=== PATIENT | female | born 1945 | race Caucasian/White ===

== ENCOUNTER 2016-11-23 06:51 | Day surgery (SDC) | payer OTHER ==
[~2016-11-23] VITALS: Ht 167.6 cm; Wt 112.0 kg
[~2016-11-23 06:51] MED LIST: ALLO300T2 PO; ATEN-104 PO; BUME1TAB PO; CARI1TAB34 PO; FURO1TAB93 PO; LORTA5 PO; LOVA1TAB47 PO; POTASSIUM OTC; TAB-TAB PO; VITA100020 SL; XANA1TAB6 PO; ZANT150T2 PO
[2016-11-23 07:00] VITALS: BP 146/84; PULSE 123; RESP 20; O2SAT 96
[2016-11-23] MEDS ORDERED: NS 1000P @30 MLS/HR (KVO) IV SCH (07:30)
[2016-11-23] MEDS ORDERED: diphenhydrAMINE HCL 50 MG CAP PO SCH (07:30)
[2016-11-23 07:42] LABS: AUTOMATED NEUTROPHIL # 4.9 TH/MM3 (1.8-7.7); BASOPHIL % 0.6 % (0.0-2.0); EOSINOPHIL % 0.4 % (0.0-4.0); HEMATOCRIT 26.7 % (35.0-46.0); HEMO FLAGS AUTO DIFF; LYMPH % 17.1 % (9.0-44.0); LYMPHOCYTE # 1.2 TH/MM3 (1.0-4.8); MEAN CELL VOLUME 60.4 FL (80.0-100.0); MEAN CORPUSCULAR HEMOGLOBIN 18.3 PG (27.0-34.0); MEAN CORPUSCULAR HGB CONC 30.2 % (32.0-36.0); NEUT % 71.9 % (16.0-70.0); PLATELET COUNT 278 TH/MM3 (150-450); RED BLOOD COUNT 4.42 MIL/MM3 (4.00-5.30); RED CELL DISTRIBUTION WIDTH 23.7 % (11.6-17.2); WHITE BLOOD COUNT 6.8 TH/MM3 (4.0-11.0)
[2016-11-23 07:49] LABS: APTT (PATIENT) 26.1 SEC (24.3-30.1); INTERNATIONAL NORMALIZED RATIO 1.1 RATIO; PROTHROMBIN TIME - PATIENT 12.3 SEC (9.8-11.6)
[2016-11-23 07:56] LABS: BICARBONATE 27.7 MEQ/L (21.0-32.0); POTASSIUM 4.1 MEQ/L (3.5-5.1)
[2016-11-23] MEDS ORDERED: BUME2TAB PO (07:56)
[2016-11-23] MEDS ORDERED: HYDR-3133 PO (07:56)
[2016-11-23] MEDS ORDERED: OMEP40CA2 PO (07:56)
[2016-11-23] MEDS ORDERED: ENOX100I SQ (07:56)
[2016-11-23] MEDS ORDERED: MORP1TAB24 PO (07:56)
[2016-11-23] MEDS ORDERED: LANTUS2P SQ (07:56)
[2016-11-23] MEDS ORDERED: NYST1000 SWISH-SWAL (07:56)
[2016-11-23] MEDS ORDERED: ALPR1TAB3 PO (07:56)
[2016-11-23] MEDS ORDERED: ISOS30TA3 PO (07:56)
[2016-11-23] MEDS ORDERED: SPIR50TA PO (07:56)
[2016-11-23] MEDS ORDERED: TIZA4TAB PO (07:56)
[2016-11-23] MEDS ORDERED: IPRASOL INH ×2 (07:56)
[2016-11-23] MEDS ORDERED: CYMB30CA PO (07:56)
[2016-11-23] MEDS ORDERED: LOVA40TA PO (07:56)
[2016-11-23] MEDS ORDERED: CLOP75TA PO (07:56)
[2016-11-23] MEDS ORDERED: VENTAER INH (07:56)
[2016-11-23] MEDS ORDERED: POTA-163 PO (07:56)
[2016-11-23] MEDS ORDERED: COUM5TAB PO (07:56)
[2016-11-23] MEDS ORDERED: SUCR1TAB PO (07:56)
[2016-11-23] MEDS ORDERED: CARV25TA PO (07:56)
[2016-11-23] MEDS ORDERED: GABA600T PO (07:56)
[2016-11-23] MEDS ORDERED: HUMALOG SQ (07:56)
[2016-11-23] MEDS ORDERED: LINA145C PO (07:56)
[2016-11-23] MEDS ORDERED: CHOL100025 CHEW (07:56)
[2016-11-23] MEDS ORDERED: FLUTI44I INH (07:56)
[2016-11-23 08:22] LABS: CORRECTED NUCLEATED RBC 2 /100 WBC (0-0); NEUTROPHIL # MANUAL DIFF 5.3 TH/MM3 (1.8-7.7); POLYS (SEG NEUTROPHILS) 78 % (16-70); WBC DIFF SAMPLE 100
[2016-11-23 08:23] LABS: PLATELET ESTIMATE SMEAR NORMAL (NORMAL); PLATELET MORPHOLOGY NORMAL (NORMAL); POLYCHROMASIA 2.2 % (0.0-1.9); SCAN/DIFF FINAL DIFF MANUAL
[2016-11-23 09:00] LABS: HEMATOCRIT 25.6 % (35.0-46.0)
[2016-11-23] MEDS ORDERED: IOHEXOL 350 MG/ML 10 ML VIAL (for RAD DIAG) IV ONE (10:16)
--- NOTE | 2016-11-23 10:28 | RADRPT ---
EXAM DATE/TIME: 11/23/2016 10:10 1 [place] COMPARISON: No previous studies available for comparison. INDICATIONS : Short of breath. IV CONTRAST: 74 cc Omnipaque 350 (iohexol) IV RADIATION DOSE: 21.23 CTDIvol (mGy) MEDICAL HISTORY : Congestive hearrt failure. Hypertension. diabetes, PE, DVT SURGICAL HISTORY : None. ENCOUNTER: Initial ACUITY: 1 day PAIN SCALE: 0/10 LOCATION: chest TECHNIQUE: Volumetric scanning of the chest was performed using a pulmonary embolism protocol MIP images were re constructed. Using automated exposure control and adjustment of the mA and/or kV according to patien t size, radiation dose was kept as low as reasonably achievable to obtain optimal diagnostic quality images. FINDINGS: PULMONARY ARTERIES: No filling defects are seen in the pulmonary arteries through the segmental level. LUNGS: There is no consolidation or pneumothorax . No concerning pulmonary nodule is visualized. There is a calcified granuloma in the right lower lobe. There is a moderate size retrocardiac hiatal hernia. PLEURAE: There is no pleural thickening or pleural effusion. MEDIASTINUM: There is good visualization of the great vessels of the middle mediastinum. No evidence of mediastin al or hilar adenopathy/mass. MUSCULOSKELETAL: Within normal limits for patient age. MISCELLANEOUS: The visualized upper abdominal organs demonstrate no acute abnormality. There is a 4.3 x 3.7 cm low d ensity homogeneous mass in the left adrenal gland characteristic of an adenoma. CONCLUSION: 1. No evidence of pulmonary embolism. 2. The lungs are clear bilaterally. 3. Left adrenal adenoma. 4. Moderate size retrocardiac hiatal hernia. 5. Old granulomatous disease. Byron Dickinson MD on November 23, 2016 at 10:22 Board Certified Radiologist. This report was verified electronically.
[2016-11-23] MEDS ORDERED: HEPARIN-NS/PF INJ 500 ML ONE (10:49)
[2016-11-23] MEDS ORDERED: VERAPAMIL HCL 5 MG/2 ML VIAL ONE (10:49)
[2016-11-23] MEDS ORDERED: HEPARIN SODIUM - SQ 10,000 UNITS/ML VIAL ONE (10:50)
[2016-11-23] MEDS ORDERED: HEPARIN SODIUM - IV 10,000 UNITS/10 ML VIAL ONE (10:51)
[2016-11-23] MEDS ORDERED: MIDAZOLAM HCL 2 MG/2 ML VIAL ONE (11:01)
[2016-11-23] MEDS ORDERED: MISC INFORMATION XX ONE (11:45)
[2016-11-23] MEDS ORDERED: IOHEXOL 350 MG/ML 50 ML BTL (for Cath Lab) OTHER ONE (12:15)
--- NOTE | 2016-11-23 12:36 | MA ---
cc: JOSHUA CHAN DATE: 11/23/2016 DATE OF : 1945 PROCEDURE PERFORMED 1. Left heart catheterization. 2. Selective right and left coronary angiography. 3. Left ventriculogram. INDICATION Dyspnea on exertion, intermediate risk nuclear stress test/calcified coronary arteries on CTA. PROCEDURE DESCRIPTION Consent signed. The patient was brought into the cardiac laborer/key man in a fasting state. The right wrist was prepped and draped in sterile fashion. Using 1% lidocaine for local anesthesia and a micropuncture kit, a 6-Austrian sheath was inserted into the right radial artery. An antispasmodic cocktail was given then selective right and left coronary angiography was performed with JR4 and JL4 diagnostic catheters. Angiography was taken in multiple views. Then the JR4 diagnostic catheter was introduced into the left ventricle over a wire. This was followed by pressure recordings, left ventriculogram and pullback. The patient tolerated the procedure well without complications. Estimated blood loss less than 5 cc. Total contrast used 40 cc. The right wrist radial access site was closed with a TR band. RESULTS LEFT VENTRICLE The left ventricular pressure was 118/32 with an LVEDP of 26. The aortic pressure was 110/77 with a mean of 96. There was no gradient upon pullback from the left ventricle to the aorta. The left ventriculogram revealed a symmetrically luz [place]ina ventricle with an estimated ejection fraction of 60%. ANGIOGRAPHY 1. The left main was patent with SKY-III flow and mild calcifications. 2. The LAD is a transapical vessel and has minimal luminal irregularities throughout. There is a 20% lesion proximally. There are two diagonals which are small and patent. 3. The left circumflex is mildly calcified with a 10% lesion proximally. It is giving off three obtuse marginal branches which are patent with nonobstructive CAD, and an AV groove branch which is small. There is no obstructive coronary artery disease. 4. The right coronary artery is a dominant vessel giving off the PDA. There is mild calcification throughout; however, the remainder of the vessel has nonobstructive coronary artery disease. CONCLUSIONS 1. Nonobstructive coronary artery disease. 2. Elevated LVEDP/diastolic dysfunction. RECOMMENDATIONS Continue aggressive medical management for primary prevention of coronary artery disease. 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 She is being followed by hematology/oncology as well as cardiology with Dr. Copeland. Of note, the patient was baseline anemic this morning in the setting of recent outside hospital interventions. Also, the patient has a severe hiatal hernia that is being followed by general surgery for fundoplication. Joshua Chan MD RAILROAD SIGNAL AND SWITCH OPERATOR/BT /11:30 AM /12:18 PM [facility]
--- NOTE | 2016-11-24 18:05 | EKG ---
Date Performed: 11/23/2016 Time Performed: 07:37:30 PTAGE: 71 years EKG: Sinus tachycardia Abnormal ECG Compared to prior tracing of 01/11/2012, the rate is faster. PREVIOUS TRACING : 01/11/2012 15.13 DOCTOR: Lauri Salcido Interpretating Date/Time 11/24/2016 18:04:58
== END 2016-11-23 16:20 | disposition home or self-care (01) ==
LOC: HDOC 06:51 → HDIC 06:52 → HDOC 16:20
PROVIDERS: ATTEND Radiology Vascular & Interventional Radiology
DX: R07.9 Chest pain, unspecified (principal); R06.09 Other forms of dyspnea; I25.10 Atherosclerotic heart disease of native coronary artery without angina pectoris; K44.9 Diaphragmatic hernia without obstruction or gangrene; I13.0 Hypertensive heart and chronic kidney disease with heart failure and stage 1 through stage 4 chronic kidney disease, or unspecified chronic kidney disease; E11.22 Type 2 diabetes mellitus with diabetic chronic kidney disease; N18.3 Chronic kidney disease, stage 3 (moderate); I50.30 Unspecified diastolic (congestive) heart failure; Z86.718 Personal history of other venous thrombosis and embolism
CPT/HCPCS: 71275; 80048; 85007; 85014; 85018; 85027; 85610; 85730; 93005; 93458; C1769; C1893; J1644; J2250; J3010; J7030; Q0163; Q9967